=== PATIENT | male | born 1960 | race Caucasian/White ===

== ENCOUNTER → 2017-03-13 | Outpatient (CLI) | payer OTHER | LOC: FIMAGING 08:19 | PROVIDERS: ATTEND Internal Medicine Gastroenterology | DX: K82.4 Cholesterolosis of gallbladder (principal); N28.1 Cyst of kidney, acquired ==

== ENCOUNTER 2017-08-23 10:33 | Emergency (ER) | payer OTHER ==
[2017-08-23 10:45] VITALS: BP 158/92; PULSE 70; RESP 16; TEMP 98.2; O2SAT 95
--- NOTE | 2017-08-23 10:46 | EDPHY ---
H & P Stated Complaint: LUQ/flank pain, constipation Time Seen by Provider: 08/23/17 10:46 - Personal History Current Tetanus/Diphtheria Vaccine: Yes Current Tetanus Diphtheria and Acellular Pertussis (TDAP): Yes Tetanus Vaccine Date: WITHIN 10 YEARS - Medical/Surgical History Hx Asthma: No Hx Chronic Respiratory Disease: No Hx Diabetes: No Hx Cardiac Disease: No Hx Renal Disease: No Hx Cirrhosis: No Hx Alcoholism: No Hx HIV/AIDS: No Hx Splenectomy or Spleen Trauma: No Other PMH: HYPOTHYROIDISM, R thumb surgery, R inguinal hernia, tonsilectomy. TURP - Social History Smoking Status: Never smoked Constitutional: Initial Vital Signs Temperature (C) 36.8 C 08/23/17 10:41 Heart Rate 70 08/23/17 10:41 Respiratory Rate 16 08/23/17 10:41 Blood Pressure 158/92 H 08/23/17 10:41 O2 Sat (%) 95 08/23/17 10:41 O2 Delivery Mode Room Air Allergies/Adverse Reactions: acetaminophen Allergy (Verified 08/23/17 10:41) Home Medications: Medication Instructions Recorded Levothyroxine [Levothroid, 88 mcg PO DAILY@1000 03/02/11 Synthroid] Aspirin 81mg (OTC) 08/10/14 Calcium 08/10/14 Multivitamin 08/10/14 Vitamin D2 08/10/14 Medical Decision Making - Diagnostics Imaging Results: Imaging Impressions Abdomen X-Ray 08/23/17 11:01 Impression: No source for left upper quadrant pain identified. Imaging: I viewed and interpreted images myself ED Course/Re-evaluation: CHIEF COMPLAINT: Left upper quadrant pain HISTORY OF PRESENT ILLNESS: The patient is a 57 y/o male complaining of left upper quadrant pain after taking 4 oxycodone's last week. Last week he had a right thumb surgery and was administered Versed, and oxycodone for the pain. He has been unable to have a bowel movement since the surgery. Last night he developed left upper quadrant pain that is radiating to his back. He has taken several saline laxatives, fiber laxatives, and milk of magnesia without relief of symptoms. Denies urinary complaints, chest pain, shortness of breath, numbness, paresthesias or other pertinent symptoms. REVIEW OF SYSTEMS: A 10 point review of systems was performed and is negative with the exception of the elements mentioned in the history of present illness. PHYSICAL EXAM: HR, BP, O2 Sat, RR. Temp noted General Appearance: Alert, well hydrated, appropriate, and non-toxic appearing. Head: Atraumatic without scalp tenderness or obvious injury Eyes: Pupils equal, round, reactive to light and accommodation, EOMI, no trauma , no injection. Ears: Clear bilaterally, no perforation, normal landmarks Nose: Atraumatic, no rhinorrhea, clear. Throat: Mucus membranes moist. Neck: Supple, nontender, no lymphadenopathy. Respiratory: No retractions, no distress, no wheezes, and no accessory muscle use. Lungs are clear to auscultation bilaterally. Cardiovascular: Regular rate and rhythm, no murmurs, rubs, or gallops. Good capillary refill all extremities. Gastrointestinal: Abdomen is soft, nontender, non-distended, no masses, no rebound, no guarding, no peritoneal signs. Musculoskeletal: Normal active ROM of all extremities, atraumatic. Neurological: Alert, appropriate, and interactive. Nonfocal neuro. Skin: No rashes, good turgor, no nodules on palpation. Past medical history: Hypothyroidism, right inguinal hernia Past surgical history: Right thumb surgery, tonsillectomy Family history: Noncontributory Social history: at bedside, lives in [place], works for the [employer] DIAGNOSTICS/PROCEDURES/CRITICAL CARE TIME: Abdominal x-ray: Constipation DIFFERENTIAL DIAGNOSIS: The differential diagnosis for the patient's abdominal pain included but was not limited to constipation, appendicitis, cholecystitis, hernias, testicular torsion, gastritis, and urinary tract infection. MEDICAL DECISION MAKING: The patient is a 57 y/o male presenting with right upper quadrant pain secondary to taking oxycodone after a right thumb surgery last week. His physical exam is normal. Abdominal x-ray ordered. 1135: Reviewed patient's abdominal x-ray; it reveals constipation there is no small bowel obstruction. 1140: Reassessed patient and discussed imaging results. I have advised him to take Miralax and drink a bottle of magnesium citrate. Return precautions provided; patient is comfortable with this plan. Departure - Departure Disposition: Home, Routine, Self-Care Clinical Impression: Constipation Qualifiers: Constipation type: unspecified constipation type Qualified Code(s): K59.00 - Constipation, unspecified Condition: Good Instructions: Constipation (ED) Additional Instructions: 1. Take Miralax as instructed. 2. Drink a bottle of magnesium citrate as instructed. 3. Follow up with your primary care provider in the next week for unimproved symptoms. 4. Return to the Emergency Department for fever, chest pain, shortness of breath, vomiting, increasing pain or other worsening of condition. Referrals: Dora Grady MD [Primary Care Provider] - As per Instructions Report Scribed for: Jack Chase Report Scribed by: Leilani Rodriges Date of Report: 08/23/17 Time of Report: 11:08
[2017-08-23] MEDS ORDERED: MAGNESIUM CITRATE 300 ML BOTTLE PO ONE (11:47)
== END 2017-08-23 11:56 | disposition home or self-care (01) ==
DX: K59.00 Constipation, unspecified (principal); Z79.82 Long term (current) use of aspirin